=== PATIENT | male | born 1975 | race Caucasian/White ===

== ENCOUNTER 2021-12-13 18:16 | Emergency (ER) | payer SELFPAY ==
[~2021-12-13] VITALS: Ht 180.3 cm; Wt 74.8 kg
[2021-12-13 18:48] LABS: CLARITY,URINE HAZY (CLEAR); COLOR,URINE YELLOW (YELLOW); KETONES,URINE NEGATIVE (NEGATIVE); LEUKOCYTE ESTERASE ,URINE NEGATIVE (NEGATIVE); NITRITE,URINE NEGATIVE (NEGATIVE); PROTEIN,URINE DIPSTICK NEGATIVE (NEGATIVE); URINE UROBILINOGEN 1 mg/dL (0.2 - 1)
[2021-12-13 18:53] LABS: BACTERIA,URINE FEW /HPF; EPITHELIAL CELLS,URINE FEW /LPF; RBC,URINE 0-5 /HPF (0-5); WBC,URINE (MAN) 0-5 /HPF (0-5)
[2021-12-13] MEDS ORDERED: KETOROLAC TROMETHAMINE 30 MG/ML VIAL IM STA (19:34)
[2021-12-13 20:57] VITALS: BP 136/64
== END 2021-12-13 21:00 | disposition home or self-care (01) ==
LOC: ER 18:30
DX: R36.1 Hematospermia (principal); R10.30 Lower abdominal pain, unspecified; J44.9 Chronic obstructive pulmonary disease, unspecified; E78.5 Hyperlipidemia, unspecified; B19.10 Unspecified viral hepatitis B without hepatic coma; F17.210 Nicotine dependence, cigarettes, uncomplicated
CPT/HCPCS: 76870; 81001; 87086; 99283; J1885; 93976

== ENCOUNTER 2022-03-02 21:37 | Observation (INO) | payer SELFPAY ==
[~2022-03-02] VITALS: Ht 180.3 cm; Wt 74.8 kg
[2022-03-02] MEDS ORDERED: ASPIRIN 81 MG CHEW TAB PO ONE ×2 (21:45→22:45)
[2022-03-02 21:56] LABS: BASOPHILS # (AUTO) 0.1 (0.0-0.1); BASOPHILS % 0.6 % (0.0-1.0); EOSINOPHILS # (AUTO) 0.1 (0.0-0.4); EOSINOPHILS % 1.7 % (0.0-6.0); HEMATOCRIT 40.5 % (38.2-49.6); HEMOGLOBIN 13.3 g/dL (14.0-18.0); LYMPHOCYTES # (AUTO) 1.8 (1.0-3.2); LYMPHOCYTES % 21.6 % (18.0-39.1); MEAN CORPUSCULAR HEMOGLOBIN 29.2 pg (28-32); MEAN CORPUSCULAR HGB CONC 32.8 g/dL (31-35); MONOCYTES # (AUTO) 0.9 (0.2-0.8); MONOCYTES % 10.4 % (4.4-11.3); NEUTROPHILS # (AUTO) 5.5 (2.1-6.9); NEUTROPHILS % 65.2 % (38.7-80.0); PLATELET COUNT 245 x10e3/uL (140-360); RED BLOOD COUNT 4.55 x10e6/uL (4.3-5.7); RED CELL DISTRIBUTION WIDTH 13.5 % (11.7-14.4)
[2022-03-02 22:31] LABS: ALANINE AMINOTRANSFERASE 218 IU/L (0-55); ALBUMIN 3.5 g/dL (3.5-5.0); ALBUMIN/GLOBULIN RATIO 1.1 (0.8-2.0); ALKALINE PHOSPHATASE 93 IU/L (40-150); ANION GAP 12.8 mmol/L (8-16); BLOOD UREA NITROGEN 21 mg/dL (7-26); BUN/CREATININE RATIO 17 (6-25); CALCIUM 8.7 mg/dL (8.4-10.2); CARBON DIOXIDE 23 mmol/L (22-29); CHLORIDE 104 mmol/L (98-107); CREATINE KINASE 1183 IU/L (30-200); CREATININE, SERUM 1.27 mg/dL (0.72-1.25); EST GLOMERULAR FILTRATION RATE 62 ML/MIN (60-); GLUCOSE 87 mg/dL (74-118); POTASSIUM 3.8 mmol/L (3.5-5.1); SODIUM 136 mmol/L (136-145)
[2022-03-02 22:41] LABS: AMPHETAMINES SCREEN,URINE NEGATIVE (NEGATIVE); BENZODIAZEPINES SCREEN,URINE NEGATIVE (NEGATIVE); PHENCYCLIDINE SCREEN,URINE NEGATIVE (NEGATIVE)
[2022-03-02] MEDS ORDERED: ONDANSETRON HCL INJ 2MG/ML 2ML 2 MG/ML VIAL IV PRN (22:45)
[2022-03-02] MEDS: SODIUM CHLORIDE 0.9% 1000ML 1,000 ML IV SCH (23:04)
[2022-03-02] MEDS: Morphine 4mg Syringe 4 MG/ML INJ IV PRN (23:04)
[2022-03-03] VITALS (11 sets, daily range): BP systolic 113–119; BP diastolic 58–81
[2022-03-03] MEDS: SODIUM CHLORIDE 0.9% 1000ML 1,000 ML IV SCH ×3 (03:40→23:00)
[2022-03-03] MEDS: Morphine 4mg Syringe 4 MG/ML INJ IV PRN ×5 (04:11→22:30)
[2022-03-03] MEDS ORDERED: LIPITOR20 MG PO (04:54)
[2022-03-03] MEDS ORDERED: NEURONTIN300 MG PO (04:56)
[2022-03-03 06:58] LABS: BASOPHILS # (AUTO) 0.1 (0.0-0.1); EOSINOPHILS # (AUTO) 0.2 (0.0-0.4); EOSINOPHILS % 3.9 % (0.0-6.0); HEMATOCRIT 41.9 % (38.2-49.6); HEMOGLOBIN 12.9 g/dL (14.0-18.0); LYMPHOCYTES # (AUTO) 1.6 (1.0-3.2); LYMPHOCYTES % 25.8 % (18.0-39.1); MEAN CORPUSCULAR HGB CONC 30.8 g/dL (31-35); MEAN CORPUSCULAR VOLUME 94.2 fL (81-99); MONOCYTES # (AUTO) 0.8 (0.2-0.8); MONOCYTES % 13.1 % (4.4-11.3); NEUTROPHILS # (AUTO) 3.4 (2.1-6.9); NEUTROPHILS % 55.5 % (38.7-80.0); PLATELET COUNT 233 x10e3/uL (140-360); RED BLOOD COUNT 4.45 x10e6/uL (4.3-5.7); RED CELL DISTRIBUTION WIDTH 13.9 % (11.7-14.4)
[2022-03-03 07:17] LABS: ALBUMIN 3.1 g/dL (3.5-5.0); ALBUMIN/GLOBULIN RATIO 1.2 (0.8-2.0); ANION GAP 8.9 mmol/L (8-16); CALCIUM 7.7 mg/dL (8.4-10.2); CREATINE KINASE 819 IU/L (30-200); CREATININE, SERUM 1.18 mg/dL (0.72-1.25); POTASSIUM 3.9 mmol/L (3.5-5.1)
[2022-03-03] MEDS ORDERED: ACETAMINOPHEN 325 MG TAB PO PRN (08:30)
[2022-03-03] MEDS ORDERED: ASPIRIN 81 MG CHEW TAB PO ONE (08:30)
[2022-03-03] MEDS: GABAPENTIN 300 MG CAP PO SCH ×3 (08:48→20:40)
[2022-03-03] MEDS ORDERED: NITROGLYCERIN 0.4 MG SUBL SL PRN (09:15)
[2022-03-03 10:19] LABS: FERRITIN 35.71 ng/mL (21.81-274.66)
[2022-03-03 15:18] LABS: CREATINE KINASE 626 IU/L (30-200)
[2022-03-04] VITALS: BP 112/71
[2022-03-04] MEDS: Morphine 4mg Syringe 4 MG/ML INJ IV PRN ×3 (02:48→13:48)
[2022-03-04 04:00] VITALS: BP 113/82
[2022-03-04 05:28] LABS: ALBUMIN/GLOBULIN RATIO 1.1 (0.8-2.0); ANION GAP 9.4 mmol/L (8-16); CALCIUM 7.8 mg/dL (8.4-10.2); CREATININE, SERUM 1.1 mg/dL (0.72-1.25); POTASSIUM 4.4 mmol/L (3.5-5.1)
[2022-03-04 05:57] LABS: CHOL/HDL RATIO 6.6 (3.9-4.7)
[2022-03-04 06:03] LABS: CREATINE KINASE 371 IU/L (30-200)
[2022-03-04] MEDS: SODIUM CHLORIDE 0.9% 1000ML 1,000 ML IV SCH (07:30)
[2022-03-04 08:00] VITALS: BP 106/59
[2022-03-04] MEDS: GABAPENTIN 300 MG CAP PO SCH ×2 (08:27→15:27)
[2022-03-04 08:58] VITALS: BP 106/59
[2022-03-04] MEDS ORDERED: IRON SUCROSE 100 MG in SODIUM CHLORIDE 0.9% 100 ML 100 ML IV SCH (09:00)
[2022-03-04] MEDS ORDERED: ASPIRIN 325 MG TAB PO SCH (09:00)
[2022-03-04] MEDS ORDERED: ASPIRIN 81 MG CHEW TAB PO ONE (09:00)
[2022-03-04] MEDS: DEXTROSE 5%/0.45% SOD CHL 1,000 ML IV SCH ×2 (09:49→17:11)
[2022-03-04] MEDS ORDERED: REGADENOSON 0.4 MG/5 ML SYR IV ONE (10:26)
[2022-03-04 11:23] VITALS: BP 124/73
[2022-03-04] MEDS ORDERED: ASPIRIN81 MG PO (14:24)
[2022-03-04 15:54] VITALS: BP 105/58
[2022-03-04] MEDS ORDERED: ONDANSETRON HCL 4 MG ORAL DISINTEGRATING TAB PO PRN (18:00)
== END 2022-03-04 18:00 | disposition home or self-care (01) ==
LOC: ER 21:40 → ERHOLD 22:48 → MED/SURG2 03-03 01:21
PROVIDERS: ADMIT Internal Medicine; ATTEND Internal Medicine
DX: R07.2 Precordial pain (principal); I51.9 Heart disease, unspecified; J44.9 Chronic obstructive pulmonary disease, unspecified; Z20.822 Contact with and (suspected) exposure to COVID-19; G89.29 Other chronic pain; R00.1 Bradycardia, unspecified; R74.01 Elevation of levels of liver transaminase levels; I25.10 Atherosclerotic heart disease of native coronary artery without angina pectoris; Z95.5 Presence of coronary angioplasty implant and graft; M62.82 Rhabdomyolysis; E78.5 Hyperlipidemia, unspecified
CPT/HCPCS: 36415 ×3; 71045; 76705; 78452; 80053 ×3; 80061; 80307; 82390; 82550 ×3; 82553 ×3; 82728; 83540; 83690; 83880; 84484 ×3; 85025 ×2; 85379; 86039; 86255; 93005 ×2; 93017; 93306; 99284; A9502; C9113; G0378 ×3; J1756; J2270 ×3; J2405; J2785; J7030 ×2; U0002